=== PATIENT | female | born 1970 | race Caucasian/White ===

== ENCOUNTER → 2017-05-12 | Outpatient (CLI) | payer BC ==
[2014-03-21 14:22] VITALS: BP 120/77
--- NOTE | 2017-05-12 14:02 | CT ---
Examination: CT of the abdomen and pelvis with contrast. Clinical History: Right upper quadrant pain radiating to right lower quadrant. Technique: Multiple axial images were obtained from the lung bases down to the pubic symphysis follow ing the intravenous administration of 100 ml of Omnipaque 350. Oral contrast was also administered. D ose reduction techniques including automated exposure control (AEC) and adjustment of mA and kV were utilized. Comparison: 03/21/2013. Findings: The visualized portion of the lung bases is unremarkable. Multiple surgical clips are seen in the gallbladder fossa, consistent with a prior cholecystectomy. There is a subtle 1.3 cm oval low-density lesion associated with the right lobe of the liver, which w as also evident on the prior examination and is essentially stable in size and appearance, likely rep resenting a small benign cyst or hemangioma. The liver is borderline enlarged measuring 20.1 cm in th e craniocaudal dimension. The spleen, pancreas, adrenal glands and kidneys are normal in appearance. Incidental note is made of 2 small accessory spleens seen at the medial aspect of the spleen, with the largest measuring approx imately 1.4 cm in size. The abdominal aorta is normal in caliber. The bowel gas pattern is non-obstructive. There is no free air. The colon is within normal limits. The small bowel is grossly unremarkable. The appendix is visualized and is normal in appearance. The bladder is within normal limits. The uterus is surgically absent. Incidental note is made of a vaginal tampon in the vagina. There is a 2.8 x 2.6 cm left adnexal mass, probably representing the left ovary. If there is clinical concern regarding pelvic pathology, a pelvic ultrasound could be obtained for further evaluation. No pelvic fluid collection is noted. No enlarged lymph nodes, by CT criteria, are noted in the mesenteric, periaortic or deep pelvic regio ns. There is a lumbar scoliosis seen convex to the left, with an apparent thoracic scoliosis seen convex to the right. Degenerative changes are noted in the spine. No acute osseous abnormality is noted. Impression: 1. Borderline hepatomegaly. 2. Essentially stable small low-density mass associated with the right lobe of the liver, likely repr esenting a small benign cyst or hemangioma. 3. There is a small left adnexal mass, probably representing the left ovary. If there is clinical con cern regarding pelvic pathology, a pelvic ultrasound could be obtained for further evaluation. 4. Postsurgical changes from a prior cholecystectomy and hysterectomy. Reported By:
== END ==
LOC: RAD 09:16
PROVIDERS: ATTEND Internal Medicine
DX: R11.2 Nausea with vomiting, unspecified (principal); R10.9 Unspecified abdominal pain; R53.83 Other fatigue; R53.1 Weakness; R00.2 Palpitations; R10.11 Right upper quadrant pain
CPT/HCPCS: 74177; A4222